=== PATIENT | male | born 1950 | race Caucasian/White ===

== ENCOUNTER 2016-04-09 13:45 | Outpatient (CLI) | payer MEDICARE, OTHER | END 2016-04-09 13:46 | disposition home or self-care (01) | DX: F52.21 Male erectile disorder (principal); Z12.5 Encounter for screening for malignant neoplasm of prostate; Z13.220 Encounter for screening for lipoid disorders | CPT/HCPCS: 36415; 80053; 80061; 85025; G0103 ==